=== PATIENT | male | born 1960 | race Caucasian/White ===

== ENCOUNTER 2016-09-01 22:54 | Emergency (ER) | payer BC ==
[~2016-09-01] VITALS: Ht 188 cm; Wt 88.6 kg
[~2016-09-01 22:54] MED LIST: DOCU-144 PO; PANT40TA3 PO
[2016-09-01 22:55] VITALS: Ht 188 cm; Wt 88.6 kg
[2016-09-01] MEDS ORDERED: SOD CHLORIDE 0.9% 1,000 ML IV STA (23:14)
[2016-09-02 00:04] LABS: CHLORIDE 103 mmol/L (97-110); POTASSIUM 3.6 mmol/L (3.5-5.1); SODIUM 140 mmol/L (135-144)
[2016-09-02 00:05] LABS: PROTIME 13.2 Sec (12.2-14.2)
[2016-09-02 00:06] LABS: BILIRUBIN,INDIRECT 0.3 mg/dl (0-1.1); BILIRUBIN,TOTAL 0.3 mg/dl (0.2-1.3); CREATININE 0.75 mg/dl (0.61-1.24); PARTIAL THROMBOPLASTIN TIME 32.5 Sec (25.0-35.0)
[2016-09-02 00:07] LABS: ALANINE AMINOTRANSFERASE 37 IU/L (13-69); ALBUMIN/GLOBULIN RATIO 1.29; ALKALINE PHOSPHATASE 119 IU/L (42-121); ANION GAP 18 (8-16); ASPARTATE AMINO TRANSFERASE 22 IU/L (15-46); BLOOD UREA NITROGEN 15 mg/dl (7-20); CALCIUM 9.4 mg/dl (8.4-10.2); CARBON DIOXIDE 23 mmol/L (21-31); GLUCOSE 108 mg/dl (70-220); TOTAL PROTEIN 7.1 g/dl (6.1-8.1)
[2016-09-02 00:16] LABS: B-TYPE NATRIURETIC PEPTIDE 55 PG/ML (0-125)
[2016-09-02 00:17] LABS: BASOPHILS % 0.3 % (0.0-2.0); EOSINOPHILS # 0.2 10^3/ul (0.0-0.5); EOSINOPHILS % 3.1 % (0.0-7.0); HEMATOCRIT 40.5 % (42.0-52.0); HEMOGLOBIN 13.6 g/dl (14.0-18.0); LYMPHOCYTES % 31.1 % (15.0-51.0); MEAN CORPUSCULAR HEMOGLOBIN 28.5 pg (29.0-33.0); MEAN CORPUSCULAR HGB CONC 33.7 g/dl (32.0-37.0); MEAN CORPUSCULAR VOLUME 84.7 fl (82.0-101.0); MONOCYTE # 0.5 10^3/ul (0.3-0.9); MONOCYTES % 7.1 % (0.0-11.0); NEUTROPHIL # 3.7 10^3/ul (1.6-7.5); NEUTROPHILS % 58.4 % (39.0-77.0); PLATELET COUNT 364 10^3/UL (140-440); RED BLOOD COUNT 4.79 10^6/ul (4.70-6.10); RED CELL DISTRIBUTION WIDTH 13.1 % (11.5-14.5); UNCORRECTED WBC 6.4 10^3/ul (4.8-10.8); WHITE BLOOD COUNT 6.4 10^3/ul (4.8-10.8)
[2016-09-02 00:21] LABS: CONDITION 1; TROPONIN-I < 0.010 ng/ml (0.00-0.12)
--- NOTE | 2016-09-02 00:49 | RADRPT ---
PROCEDURE: XR Chest. CLINICAL INDICATION: Shortness of breath. TECHNIQUE: AP Portable chest. COMPARISON: 01/03/2016 FINDINGS: The cardiomediastinal silhouette is normal. There is minimal opacity at the left lung base. The os seous structures are unremarkable. IMPRESSION: Minimal left base atelectasis likely due to trace atelectasis and effusion. RPTAT: HIKT .Chavez Orellana MD, MD Date Time Electronically viewed and signed by .Chavez Orellana MD, on 09/02/2016 00:49 .T/
[2016-09-02] MEDS ORDERED: ONDANSETRON 4 MG INJ IV STA (01:03)
[2016-09-02] MEDS ORDERED: morphine 4 MG/ML VIAL IV STA (01:03)
[2016-09-02] MEDS ORDERED: morphine 4 MG/ML VIAL ONE (01:04)
[2016-09-02] MEDS ORDERED: SOD CHLORIDE 0.9% 100 ML ONE (01:31)
[2016-09-02] MEDS ORDERED: IOHEXOL 300MG/ML 150 ML BTL ONE (01:31)
--- NOTE | 2016-09-02 02:40 | RADRPT ---
PROCEDURE: CT Abdomen and Pelvis with IV contrast. CLINICAL INDICATION: Pain. TECHNIQUE: CT scan of the abdomen and pelvis with contrast was performed on a multidetector CT [facility]. The patient was scanned following the uncomplicated intravenous administration of 100 cc Om nipaque-300 intravenous contrast material. Coronal and sagittal reformatted images were obtained fr om the axial source images. Images were reviewed on a high-resolution PACS workstation. Exam CTDlvo l = 15 mGy and DLP = 1050 mGy-cm. COMPARISON: 01/04/2016 FINDINGS: There a right anterior and lateral percutaneous drains extending to the gallbladder fossa. There is mild infiltration fully in the gallbladder fossa. There is no significant fluid collection extendi ng beyond the margins of the fossa. Liver is enlarged at 21 cm length and mildly hypodense/fatty. There is no evidence for intrahepatic or extrahepatic biliary ductal dilatation.. Pancreas and sple en are unremarkable. There are no adrenal masses. The aorta is unremarkable. There is no obstruction or ileus. The appendix is well visualized and normal in size. There is no free fluid. There is no lymphadenopathy. There are multiple bilateral renal cyst, largest in the lower pole right kidney 9.6 mm diameter kidn eys are otherwise normal in appearance without hydronephrosis, mass or calculus. There is normal sy mmetric homogeneous renal parenchymal enhancement. There is no perinephric collection. Ureters are of normal caliber in appearance. Urinary bladder is partially contracted. Prostate gland is promi nent 6.7 x 4.2 cm. Limited evaluation lung bases unremarkable. There are mild degenerate changes of the lower lumbar spine. IMPRESSION: 1. Status post cholecystectomy. Percutaneous drains with the distal loops within the gallbladder f ambrose. Mild infiltration of filling the gallbladder fossa without a definite focal collection in the gallbladder fossa. No biliary ductal dilatation. 2. No free fluid. No evidence for and extrahepatic abscess or collection. 3. Bilateral renal cyst. No obstructive uropathy. Partially contracted urinary bladder. Prominen t prostate gland. 4. Degenerate changes lower lumbar spine. 5. Otherwise negative. RPTAT: HMVK .Zach Franklin MD, MD Date Time Electronically viewed and signed by .Zach Franklin MD, on 09/02/2016 02:39 .K/
--- NOTE | 2016-09-02 02:59 | ERD ---
ER Documentation Chief Complaint Date/Time DATE: 09/02/16 TIME: 02:57 Chief Complaint BIB RA-88 feeling dizzy&tired HPI This is a 55-year-old male brought in by rescue for weakness. Weakness is been going on since Friday. Patient had percutaneous drainage of liver abscess. Drainage is in place. No fevers or chills chills. Denies any nausea vomiting. Denies any other current issues. Denies any focal neurologic complaints. Denies any abdominal pain. ROS All systems reviewed and are negative except as per history of present illness. Medications Home Meds Active Scripts Docusate Sodium* (Colace*) 100 Mg Capsule, 100 MG PO DAILY, #30 CAP Prov:ELICEO SEN MD 01/05/16 Pantoprazole* (Protonix*) 40 Mg Tablet.dr, 40 MG PO BID for 30 Days, TAB Prov:ELICEO SEN MD 01/05/16 Allergies Allergies: Coded Allergies: No Known Allergy (Unverified , 01/03/16) PMhx/Soc History of Surgery: Yes (removal of liver abscess+ drain placed 3 weeks ago) Anesthesia Reaction: No Hx Neurological Disorder: No Hx Respiratory Disorders: No Hx Cardiac Disorders: No Hx Psychiatric Problems: No Hx Miscellaneous Medical Probl: No Hx Alcohol Use: Yes (SOCIALY) Hx Substance Use: No Hx Tobacco Use: No ("quit 3 weeks ago") Smoking Status: Former smoker Physical Exam Vitals Vital Signs Date Time Temp Pulse Resp B/P Pulse Ox O2 Delivery O2 Flow Rate FiO2 09/02/16 00:20 Nasal Cannula 2 09/01/16 22:55 98.5 68 20 143/78 99 Physical Exam Const: [] Head: Atraumatic Eyes: Normal Conjunctiva ENT: Normal External Ears, Nose and Mouth. Neck: Full range of motion..~ No meningismus. Resp: Clear to auscultation bilaterally Cardio: Regular rate and rhythm, no murmurs Abd: Soft, non tender, non distended. Normal bowel sounds Skin: No petechiae or rashes Back: No midline or flank tenderness Ext: No cyanosis, or edema Neur: Awake and alert Psych: Normal Mood and Affect Result Diagram: 09/01/16 2340 09/01/16 2349 Results 24 hrs Laboratory Tests Test 09/01/16 23:45 Activated Partial Thromboplast Time 32.5Sec Alanine Aminotransferase (ALT/SGPT) 37IU/L Albumin 4.0g/dl Albumin/Globulin Ratio 1.29 Alkaline Phosphatase 119IU/L Anion Gap 18 Aspartate Amino Transf (AST/SGOT) 22IU/L B-Type Natriuretic Peptide 55PG/ML Basophils # 0.010^3/ul Basophils % 0.3% Blood Morphology Comment Blood Urea Nitrogen 15mg/dl Calcium Level 9.4mg/dl Carbon Dioxide Level 23mmol/L Chloride Level 103mmol/L Creatinine 0.75mg/dl Direct Bilirubin 0.00mg/dl Eosinophils # 0.210^3/ul Eosinophils % 3.1% Globulin 3.10g/dl Glucose Level 108mg/dl Hematocrit 40.5% Hemoglobin 13.6g/dl INR International Normalized Ratio 1.00 Indirect Bilirubin 0.3mg/dl Lymphocytes # 2.010^3/ul Lymphocytes % 31.1% Mean Corpuscular Hemoglobin 28.5pg Mean Corpuscular Hemoglobin Concent 33.7g/dl Mean Corpuscular Volume 84.7fl Mean Platelet Volume 8.0fl Monocytes # 0.510^3/ul Monocytes % 7.1% Neutrophils # 3.710^3/ul Neutrophils % 58.4% Nucleated Red Blood Cells # 0.010^3/ul Nucleated Red Blood Cells % 0.0/100WBC Platelet Count 29496^3/UL Potassium Level 3.6mmol/L Prothrombin Time 13.2Sec Prothrombin Time Ratio 1.0 Red Blood Count 4.7910^6/ul Red Cell Distribution Width 13.1% Sodium Level 140mmol/L Total Bilirubin 0.3mg/dl Total Protein 7.1g/dl Troponin I < 0.010ng/ml White Blood Count 6.410^3/ul Current Medications Medications (Trade) Dose Ordered Sig/Marleny Route PRN Reason Start Time Stop Time Status Last Admin Dose Admin Sodium Chloride (NS) 1,000 ml @ 1,000 mls/hr Q1H STAT IV 09/01/16 23:14 09/02/16 00:13 DC 09/01/16 23:51 Morphine Sulfate (morphine) 4 mg ONCE STAT IV 09/02/16 01:03 09/02/16 01:04 DC 09/02/16 01:10 Ondansetron HCl (Zofran Inj) 4 mg ONCE STAT IV 09/02/16 01:03 09/02/16 01:04 DC 09/02/16 01:10 Morphine Sulfate 4 mg 4 mg STK-MED ONCE .ROUTE 09/02/16 01:04 09/02/16 01:05 DC Sodium Chloride (NS) 100 ml @ ud STK-MED ONCE .ROUTE 09/02/16 01:31 09/02/16 01:32 DC 09/02/16 01:47 Iohexol (Omnipaque 300mg/ ml) 150 ml STK-MED ONCE .ROUTE 09/02/16 01:31 09/02/16 01:32 DC 09/02/16 01:46 Procedures/MDM Medical decision-makin-year-old male comes in for weakness of unknown cause. Patient feels better after hydration. Discharged home. Follow-up PCP. Return for return of symptoms. Departure Diagnosis: Primary Impression: Acute weakness Condition: Stable Patient Instructions: Weakness, Unk Cause GISELLE CARROLL Sep 02, 2016 02:58
[2016-09-02 03:09] VITALS: BP 129/74; PULSE 71; RESP 14; TEMP 98.9
== END 2016-09-02 03:12 | disposition home or self-care (01) ==
LOC: E/R 22:54
DX: R53.1 Weakness (principal); R40.2252 Coma scale, best verbal response, oriented, at arrival to emergency department; R06.02 Shortness of breath; R40.2362 Coma scale, best motor response, obeys commands, at arrival to emergency department; R40.2142 Coma scale, eyes open, spontaneous, at arrival to emergency department; Z87.891 Personal history of nicotine dependence
CPT/HCPCS: 36415; 71010; 74177; 80053; 83880; 84484; 85025; 85610; 85730; 93005; 96374; 96375; 99285; J2270; J2405; J7030; Q9967